=== PATIENT | female | born 1925 | race Caucasian/White ===

== ENCOUNTER 2016-03-02 18:33 | Inpatient (IN) | payer OTHER ==
[~2016-03-02] VITALS: Ht 167.6 cm; Wt 54.4 kg
[2016-03-02 18:35] VITALS: BP 116/63
[2016-03-02 19:09] LABS: ABSOLUTE NEUTROPHILS 6.3 thou/uL (1.4-8.2); HEMOGLOBIN 13.3 gm/dL (12.0-15.0); LYMPHOCYTES 9.8 % (24.0-44.0); MCH 30.7 pg (26.0-34.0); MCHC 34.9 % (28.0-37.0); MCV 87.7 fL (80.0-100.0); MONOCYTES 8.5 % (1.0-8.0); PLATELET COUNT 217 thou/uL (150-400); POLYS 81.7 % (36.0-66.0); RBC 4.33 mil/uL (4.20-5.00); RDW 15.3 % (10.5-14.5); WBC 7.7 thou/uL (4.0-11.0)
[2016-03-02 19:11] LABS: MANUAL DIFF NO
[2016-03-02 19:26] LABS: CALCIUM 9.5 mg/dL (8.5-10.1); CREATININE 0.9 mg/dL (0.6-1.3)
[2016-03-02 19:32] LABS: POTASSIUM 2.8 mmol/L (3.5-5.1)
[2016-03-02 22:04] LABS: URINE BILIRUBIN NEGATIVE (Negative); URINE BLOOD 2+ (Negative); URINE COLOR YELLOW; URINE GLUCOSE-RANDOM* NEGATIVE (Negative); URINE KETONES TRACE (Negative); URINE LEUKOCYTES-REFLEX 2+ (Negative); URINE PROTEIN (DIPSTICK) 1+ (Negative)
[2016-03-02 22:12] LABS: CASTS None Seen /LPF (None Seen); CRYSTALS None Seen /LPF (None Seen); SQUAMOUS 0-3 Few /LPF (0-3); URINE RBC 0-2 Rare /HPF (0-2); URINE WBC-REFLEX >25 Many /HPF (0-5)
[2016-03-02 22:19] VITALS: BP 122/75
[2016-03-02 22:47] VITALS: BP 137/82
[2016-03-02] MEDS ORDERED: TYLENOL325 MG PO (23:28)
[2016-03-02] MEDS ORDERED: CARVEDILOL6.25 MG PO (23:29)
[2016-03-02] MEDS ORDERED: VITAMIN D1000 UNI1 PO (23:32)
[2016-03-02] MEDS ORDERED: DILTIAZEM 24HR120 M1 PO (23:34)
[2016-03-02] MEDS ORDERED: ELIQUIS5 MG PO (23:34)
[2016-03-02] MEDS ORDERED: NEXIUM40 MG PO (23:35)
[2016-03-02] MEDS ORDERED: LISINOPRIL5 MG PO (23:36)
[2016-03-02] MEDS ORDERED: MIRALAX17 GM PO (23:36)
[2016-03-02] MEDS ORDERED: CENTRUM SILVER1 EAC4 SUBLING (23:37)
[2016-03-02] MEDS ORDERED: HYDROCODON-ACE1 EAC7 PO (23:38)
[2016-03-02] MEDS ORDERED: HYDROCODONE-AP1 EAC6 PO (23:39)
[2016-03-02] MEDS ORDERED: RISPERDAL 1 MG T1 MG PO (23:40)
[2016-03-02] MEDS ORDERED: VITAMIN D35000 UNI1 PO (23:41)
[2016-03-02] MEDS ORDERED: OSELB75 PO (23:42)
[2016-03-03 07:38] VITALS: BP 142/83
[2016-03-03 12:51] LABS: BASOPHILS 0.2 % (0.0-2.0); EOSINOPHILS 0.2 % (0.0-3.0); HEMATOCRIT 35.1 % (37.0-47.0); HEMOGLOBIN 12.2 gm/dL (12.0-15.0); LYMPHOCYTES 16.7 % (24.0-44.0); MCHC 34.9 % (28.0-37.0); MCV 88.7 fL (80.0-100.0); MONOCYTES 9.1 % (1.0-8.0); PLATELET COUNT 198 thou/uL (150-400); POLYS 73.8 % (36.0-66.0); RBC 3.95 mil/uL (4.20-5.00); RDW 15.2 % (10.5-14.5); WBC 5.5 thou/uL (4.0-11.0)
[2016-03-03 12:55] LABS: MANUAL DIFF NO
[2016-03-03 13:04] LABS: CALCIUM 9.1 mg/dL (8.5-10.1); CREATININE 0.7 mg/dL (0.6-1.3); POTASSIUM 3.3 mmol/L (3.5-5.1)
[2016-03-03 15:24] VITALS: BP 142/79
[2016-03-03 19:48] VITALS: BP 149/81
[2016-03-03 23:58] VITALS: BP 159/93
[2016-03-04 03:48] LABS: ABSOLUTE NEUTROPHILS 3.7 thou/uL (1.4-8.2); BASOPHILS 0.9 % (0.0-2.0); EOSINOPHILS 0.8 % (0.0-3.0); HEMATOCRIT 33.5 % (37.0-47.0); HEMOGLOBIN 11.6 gm/dL (12.0-15.0); LYMPHOCYTES 17.8 % (24.0-44.0); MCH 30.8 pg (26.0-34.0); MCHC 34.6 % (28.0-37.0); MCV 89.1 fL (80.0-100.0); MONOCYTES 7.1 % (1.0-8.0); PLATELET COUNT 215 thou/uL (150-400); POLYS 73.4 % (36.0-66.0); RBC 3.76 mil/uL (4.20-5.00); RDW 15.6 % (10.5-14.5); WBC 5.1 thou/uL (4.0-11.0)
[2016-03-04 03:53] LABS: CALCIUM 8.7 mg/dL (8.5-10.1); CREATININE 0.5 mg/dL (0.6-1.3); MANUAL DIFF NO; POTASSIUM 3.3 mmol/L (3.5-5.1)
[2016-03-04 04:59] VITALS: BP 149/82
[2016-03-04 07:40] VITALS: BP 150/81
[2016-03-04 16:35] VITALS: BP 132/78
[2016-03-04 19:42] VITALS: BP 146/80
[2016-03-05 03:09] VITALS: BP 136/77
[2016-03-05 03:58] LABS: ABSOLUTE NEUTROPHILS 3.7 thou/uL (1.4-8.2); BASOPHILS 0.2 % (0.0-2.0); EOSINOPHILS 0.9 % (0.0-3.0); HEMATOCRIT 34.6 % (37.0-47.0); MCH 30.6 pg (26.0-34.0); MCHC 34.6 % (28.0-37.0); MCV 88.4 fL (80.0-100.0); MONOCYTES 6.6 % (1.0-8.0); PLATELET COUNT 271 thou/uL (150-400); POLYS 71.3 % (36.0-66.0); RBC 3.91 mil/uL (4.20-5.00); RDW 15.3 % (10.5-14.5); WBC 5.2 thou/uL (4.0-11.0)
[2016-03-05 04:12] LABS: MANUAL DIFF NO
[2016-03-05 04:40] LABS: CALCIUM 8.8 mg/dL (8.5-10.1); CREATININE 0.5 mg/dL (0.6-1.3)
[2016-03-05 04:48] LABS: POTASSIUM 2.8 mmol/L (3.5-5.1)
[2016-03-05 07:42] VITALS: BP 152/89
[2016-03-05 10:39] LABS: POTASSIUM 3.5 mmol/L (3.5-5.1)
[2016-03-05 10:40] LABS: CALCIUM 8.6 mg/dL (8.5-10.1); CREATININE 0.5 mg/dL (0.6-1.3)
[2016-03-05 16:09] VITALS: BP 142/80
[2016-03-05 19:24] VITALS: BP 156/77
[2016-03-05 23:06] LABS: INFLUENZA B Negative (Negative); METAPNEUMOVIRUS Negative (Negative)
[2016-03-06 03:05] VITALS: BP 152/72
[2016-03-06 07:13] VITALS: BP 141/91
[2016-03-06] MEDS ORDERED: OSELB75 PO (08:52)
[2016-03-06] MEDS ORDERED: ALBUTEROL2.5 MG/0.1 INH (08:52)
== END 2016-03-06 17:22 | DRG 871 ==
LOC: ER 18:33 → 5S 21:23 → EROBS 21:23 → 5S 22:15
PROVIDERS: Emergency Medicine; Family Medicine
DX: A41.9 Sepsis, unspecified organism (principal); G93.40 Encephalopathy, unspecified; N39.0 Urinary tract infection, site not specified; N17.9 Acute kidney failure, unspecified; F32.9 Major depressive disorder, single episode, unspecified; F01.50 Vascular dementia, unspecified severity, without behavioral disturbance, psychotic disturbance, mood disturbance, and anxiety; M81.0 Age-related osteoporosis without current pathological fracture; I10 Essential (primary) hypertension; I48.91 Unspecified atrial fibrillation; E87.6 Hypokalemia; J11.1 Influenza due to unidentified influenza virus with other respiratory manifestations; Z86.718 Personal history of other venous thrombosis and embolism; Z79.899 Other long term (current) drug therapy
CPT/HCPCS: 10086